=== PATIENT | male | born 1960 | race Caucasian/White ===

== ENCOUNTER 2017-04-10 11:34 | Emergency (ER) | payer MEDICARE ==
[2017-04-10 12:28] VITALS: BP 126/61
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
== END 2017-04-10 13:38 | disposition home or self-care (01) ==
LOC: UCCORT 11:34
DX: I87.8 Other specified disorders of veins (principal); R73.03 Prediabetes; Z79.84 Long term (current) use of oral hypoglycemic drugs; Z87.891 Personal history of nicotine dependence; L03.115 Cellulitis of right lower limb
CPT/HCPCS: 99212; G0463

== ENCOUNTER 2019-05-15 20:53 | Emergency (ER) | payer MEDICARE ==
--- OUTSIDE RECORDS SUMMARY | 2019-05-15 21:17 | XMS REPORT | Continuity of Care Document ---
:1960 External Reference #:[id number] Author Name Marycruz Villalobos NP Address [address] [place] [address] Care Team Providers Name Role Phone Nehemias Aaron PA - Medical Care Team Information Car Shakeout Operator [phone] Problems Active Problems Provider Date Obstructive sleep apnea syndrome Marycruz Villalobos NP Onset: 02/23/2019 Social History Type Date Description Comments Sex Unknown Tobacco Use Start: Unknown End: Unknown Former Cigarette Smoker ETOH Use Rare Use Of Alcohol Recreational Drug Use Denies Drug Use Allergies, Adverse Reactions, Alerts Description No Known Drug Allergies Medications Active Medications SIG Qnty Indications Ordering Provider Date Tramadol HCL 1 as needed Nehemias Aaron PA 50mg Tablets Diclofenac Sodium ER 1aday Nehemias Aaron PA 100mg Tablets ER 24HR Oxybutynin Chloride ER 2 a day Nehemias Aaron PA 10mg Tablets ER 24HR Baclofen As needed Nehemias Aaron PA 10mg Tablets Sertraline HCL 2 a day Nehemias Aaron PA 100mg Tablets Tramadol HCL ER (Biphasic) Once a day Nehemias Aaron PA 300mg Tablets ER 24HR Immunizations Description No Information Available Vital Signs Date Vital Result Comment 04/28/2019 1:01pm Weight 287.00 lb Height 67 inches 5'7" BMI (Body Mass Index) 44.9 kg/m2 BP Systolic 152 mmHg BP Diastolic 80 mmHg Heart Rate 60 /min O2 % BldC Oximetry 98 % Body Temperature 97.1 F Pain Level 0 02/23/2019 2:10pm Weight 275.00 lb Height 67 inches 5'7" BMI (Body Mass Index) 43.1 kg/m2 BP Systolic 153 mmHg BP Diastolic 90 mmHg Heart Rate 64 /min O2 % BldC Oximetry 97 % Body Temperature 98.1 F [place] Score 23 Neck Circumference in inches 17 Pain Level 0 Results Description No Information Available Procedures Date Code Description Status 04/01/2019 19263 Sleep Study, Simultaneous Recording Of Completed Ventilation,Unattended 02/23/2019 74308 Fiberoptic Laryngoscopy,Diag. Completed Medical Devices Description No Information Available Encounters Type Date Location Provider Dx Diagnosis Office Visit 04/28/2019 Main Office Marycruz Villalobos G47.33 Obstructive sleep 1:00p VOLUNTEER PATIENT REPRESENTATIVE apnea (adult) (pediatric) Office Visit 02/23/2019 Main Office Marycruz Villalobos G47.33 Obstructive sleep 2:00p VOLUNTEER PATIENT REPRESENTATIVE apnea (adult) (pediatric) R06.83 Snoring G47.9 Sleep disorder, unspecified Assessments Date Code Description Provider 04/28/2019 G47.33 Obstructive sleep apnea (adult) (pediatric) Marycruz Villalobos NP 04/01/2019 G47.33 Obstructive sleep apnea (adult) (pediatric) Estela Wei M.D. 02/23/2019 G47.33 Obstructive sleep apnea (adult) (pediatric) Marycruz Villalobos NP 02/23/2019 R06.83 Snoring Marycruz Villalobos NP 02/23/2019 G47.9 Sleep disorder, unspecified Marycruz Villalobos NP Plan of Treatment 02/23/2019 - Marycruz Villalobos NPG47.33 Obstructive sleep apnea (adult) ( pediatric)R06.83 [id number] Sleep disorder, unspecifiedNew Orders:PSG - Sleep Study, Ordered: 02/23/19 Functional Status Description No Information Available Mental Status Description No Information Available Referrals Refer to Reason for Referral Status Appt Ferdinand Jones M.D. no auth req for hss Created [address] [place] [id number] [phone]
--- OUTSIDE RECORDS SUMMARY | 2019-05-15 21:17 | XMS REPORT | Continuity of Care Document ---
:1960 External Reference #:[id number] Author Name Marycruz Villalobos NP (transmitted by agent of provider Samantha Cowart) Address [address] [place] [address] Care Team Providers Name Role Phone Nehemias Aaron PA - Medical Care Team Information Radioisotope Technologist [phone] Problems Active Problems Provider Date Obstructive sleep [...] Oximetry 97 % Body Temperature 98.1 F [place] Score 23 Neck Circumference in inches 17 Pain Level 0 Results Description No Information Available Procedures Date Code Description Status 04/01/2019 87255 Sleep Study, Simultaneous Recording Of Completed Ventilation,Unattended 02/23/2019 93164 Fiberoptic Laryngoscopy,Diag. Completed Medical Devices Description No Information Available Encounters Type Date Location Provider Dx Diagnosis Office Visit 02/23/2019 Main Office Marycruz Villalobos, G47.33 Obstructive sleep 2:00p PSYCHIATRIC NURSING AIDE apnea (adult) (pediatric) R06.83 Snoring G47.9 Sleep disorder, unspecified Assessments Date Code Description Provider 04/01/2019 G47.33 Obstructive sleep apnea (adult) (pediatric) Estela Wei M.D. 02/23/2019 G47.33 Obstructive sleep apnea (adult) (pediatric) Marycruz Villalobos NP 02/23/2019 R06.83 Snoring Marycruz Villalobos NP 02/23/2019 G47.9 Sleep disorder, unspecified Marycruz Villalobos NP Plan of Treatment 02/23/2019 - Marycruz Villalobos NPG47.33 Obstructive sleep apnea (adult) ( pediatric)R06.83 [id number] Sleep disorder, unspecifiedNew Orders:PSG - Sleep Study, Ordered: 02/23/19 Functional Status Description No Information Available Mental Status Description No Information Available Referrals Refer to Reason for Referral Status Appt Ferdinand Singh M.D. no auth req for hss Created [address] [place] [address] [phone]
[2019-05-15 21:34] VITALS: BP 154/87
[2019-05-15] MEDS ORDERED: Tetan/Diph/Pertus SYR(Tdap)* 0.5 ML SYR(BOOSTRIX) use SYR contains LATEX IM ONE (21:43)
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
== END 2019-05-15 22:11 | disposition home health service (06) ==
LOC: UCCORT 20:53
DX: S00.91XA Abrasion of unspecified part of head, initial encounter (principal); S00.33XA Contusion of nose, initial encounter; S00.31XA Abrasion of nose, initial encounter; S00.511A Abrasion of lip, initial encounter; E11.9 Type 2 diabetes mellitus without complications; M54.2 Cervicalgia; Z23 Encounter for immunization; Z87.891 Personal history of nicotine dependence; W01.110A Fall on same level from slipping, tripping and stumbling with subsequent striking against sharp glass, initial encounter; Y92.9 Unspecified place or not applicable
CPT/HCPCS: 90471; 90715; 99213; G0463